=== PATIENT | male | born 1990 | race African-American/Black ===

== ENCOUNTER → 2024-08-27 | Emergency (ER) | payer OTHER ==
[~2024-08-27] VITALS: Ht 167.6 cm; Wt 75.0 kg
[2024-08-27 20:09] VITALS: TEMP 98.1
[2024-08-27] MEDS: DiphenhydrAMINE HCL 25 MG CAPSULE PO ONE (21:07)
[2024-08-27] MEDS: HYDROCORTISONE 1% 30 GM CREAM TP ONE (21:11)
[2024-08-27 21:30] VITALS: BP 110/76; PULSE 74; RESP 16; O2SAT 100
== END | disposition home or self-care (01) ==
LOC: EMS 19:50
DX: R21 Rash and other nonspecific skin eruption (principal)
CPT/HCPCS: 99283

== ENCOUNTER 2024-09-20 18:22 | Emergency (ER) | payer OTHER ==
[~2024-09-20] VITALS: Ht 185.4 cm; Wt 77.2 kg
[2024-09-20 18:42] VITALS: TEMP 98.6
[2024-09-20 18:43] VITALS: BP 120/70; PULSE 86; RESP 16; O2SAT 96
== END 2024-09-20 23:00 | disposition home or self-care (01) ==
LOC: EMS 18:22
DX: S02.5XXA Fracture of tooth (traumatic), initial encounter for closed fracture (principal); S01.511A Laceration without foreign body of lip, initial encounter; S06.0XAA Concussion with loss of consciousness status unknown, initial encounter; W01.0XXA Fall on same level from slipping, tripping and stumbling without subsequent striking against object, initial encounter; Y93.01 Activity, walking, marching and hiking; Y92.89 Other specified places as the place of occurrence of the external cause; Y99.8 Other external cause status
CPT/HCPCS: 70450; 70486; 99284